=== PATIENT | female | born 1970 | race Caucasian/White ===

== ENCOUNTER 2020-03-22 07:16 | Day surgery (SDC) | payer BC, OTHER ==
[2020-03-22] MEDS ORDERED: PROPOFOL INJ 200 MG/20 ML VIAL IV ONE (07:36)
[2020-03-22 09:00] VITALS: BP 118/66
--- NOTE | 2020-03-22 10:20 | Operative Report ---
Operative Report DATE OF SURGERY: 03/22/20 Operative Report: The risk, benefits and alternatives of the procedure including the risk of bleeding, perforation requiring surgery have been explained to the patient in detail and informed consent has been obtained. Patient is taken back to the endoscopy suite and placed in left, lateral decubital position. Propofol administered. Rectal examination is done which did not reveal any masses, tears or fissures. An Olympus videoscope was introduced into the patient's rectum. Scope was then carefully advanced all the way to the cecum. Cecum is identified by the usual anatomical landmarks including the ileocecal valve as well as the appendiceal office. Photodocumentation is obtained. Scope was then sequentially pulled back via the various segments of the colon including the ascending colon, transverse colon, splenic flexure, descending colon finding to the rectosigmoid portions of the colon. Retroflexion maneuver is performed. PREOPERATIVE DIAGNOSIS: Positive Cologuard POSTOPERATIVE DIAGNOSIS: 2 small rectosigmoid polyps status post biopsy for removal. Moderately severe diverticulosis without any evidence of diverticulitis. Internal hemorrhoids OPERATION: Colonoscopy with biopsy SURGEON: YARITZA PUCKETT ANESTHESIA: LMAC TISSUE REMOVED OR ALTERED: As noted above. COMPLICATIONS: None. ESTIMATED BLOOD LOSS: None. INTRAOPERATIVE FINDINGS: As noted above. PROCEDURE: Patient tolerated the procedure well. No immediate postprocedure complications are noted. Patient is discharged in good condition. Discharge date 03/22/2020. Discharge diet: Regular. Discharge activity: Regular. 2 to 3-week follow-up to discuss findings. Patient is instructed call the office or proceed to the emergency room should there be any further problems or questions. Depending on the pathology 5-year surveillance colonoscopy.
== END 2020-03-22 09:10 | disposition home or self-care (01) ==
LOC: END 07:16
PROVIDERS: ATTEND Internal Medicine Gastroenterology
DX: D12.8 Benign neoplasm of rectum (principal); K52.9 Noninfective gastroenteritis and colitis, unspecified; K57.90 Diverticulosis of intestine, part unspecified, without perforation or abscess without bleeding; K64.8 Other hemorrhoids; M13.842 Other specified arthritis, left hand; M13.841 Other specified arthritis, right hand; F17.200 Nicotine dependence, unspecified, uncomplicated; Z68.27 Body mass index [BMI] 27.0-27.9, adult; Z79.82 Long term (current) use of aspirin; Z79.899 Other long term (current) drug therapy; Z02.83 Encounter for blood-alcohol and blood-drug test
CPT/HCPCS: 45380; 88305 ×2; U0003; J2704; C9803; 812; 87635